=== PATIENT | female | born 1955 | race Caucasian/White ===

== ENCOUNTER 2024-02-27 06:24 | Day surgery (SDC) | payer OTHER, SELFPAY | END 2024-02-27 09:31 | disposition home or self-care (01) | LOC: GI 06:24 | PROVIDERS: ATTENDING PHYSICIAN Internal Medicine; FAMILY PHYSICIAN Internal Medicine | DX: R10.11 Right upper quadrant pain (principal); R10.13 Epigastric pain; K44.9 Diaphragmatic hernia without obstruction or gangrene; K31.89 Other diseases of stomach and duodenum; K92.2 Gastrointestinal hemorrhage, unspecified; K21.00 Gastro-esophageal reflux disease with esophagitis, without bleeding; K22.70 Barrett's esophagus without dysplasia | CPT/HCPCS: 43239; 88305; 88342 ==

== ENCOUNTER → 2024-03-12 07:20 | Outpatient (REF) | payer OTHER, SELFPAY | LOC: PAVMRI 07:20 | PROVIDERS: ATTENDING PHYSICIAN Internal Medicine; FAMILY PHYSICIAN Internal Medicine | DX: R10.11 Right upper quadrant pain (principal); R74.8 Abnormal levels of other serum enzymes | CPT/HCPCS: 74183; A9575 ==

== ENCOUNTER → 2024-09-23 14:55 | Outpatient (REF) | payer OTHER, SELFPAY | LOC: RAD 14:55 | PROVIDERS: ATTENDING PHYSICIAN Internal Medicine | DX: R07.81 Pleurodynia (principal) | CPT/HCPCS: 71101 ==